=== PATIENT | female | born 1995 | race Caucasian/White ===

== ENCOUNTER 2021-04-20 13:16 | Outpatient (REF) | payer OTHER, SELFPAY ==
[2021-04-20 15:35] LABS: MANUAL DIFF FLAG NO
[2021-04-20 15:38] LABS: Basophils Absolute Auto 0.1 X10*3/uL (0.0-0.2); Eosinophils Absolute Auto 0.4 X10*3/uL (0.0-0.4); Eosinophils Percent Auto 5.7 % (0-4); Hematocrit 37.3 % (37-47); Hemoglobin 12.6 g/dl (12.0-16.0); Imm Gran Abs Auto 0.02 X10*3/uL (0.00-0.03); Imm Gran Pct Auto 0.3 % (0.0-0.4); Lymphocytes Absolute Auto 1.9 X10*3/uL (1.2-4.9); Lymphocytes Percent Auto 28.2 % (20-40); Mean Corpuscular HGB Conc 33.8 g/dl (31.0-35.0); Mean Corpuscular Hemoglobin 32.4 pg (27.0-33.0); Mean Corpuscular Volume 95.9 fL (80-98); Mean Platelet Volume 9.9 fL (9.4-12.3); Monocytes Absolute Auto 0.5 X10*3/uL (0.1-1.2); Monocytes Percent Auto 7.7 % (2-11); Neutrophils Absolute Auto 3.8 X10*3/uL (2.0-8.3); Neutrophils Percent Auto 57.1 % (45-73); Platelet Count 341 X10*3/uL (160-400); Red Blood Count 3.89 X10*6/uL (4.20-5.50); Red Cell Distribution Width 12.7 % (11.0-16.0); White Blood Count 6.7 X10*3/uL (4.8-10.8)
[2021-04-20 15:50] LABS: Alanine Aminotransferase 20 U/L (0-31); Anion Gap 14 (12-20); Aspartate Amino Transferase 19 U/L (5-31); Blood Urea Nitrogen 19 mg/dL (9-16); Calcium 10.1 mg/dL (8.4-10.2); Carbon Dioxide 23 mmol/L (22-29); Chloride 107 mmol/L (96-108); Cholesterol 413 mg/dL; Estimated Glomerular Filt Rate > 60; Glucose Fasting 72 mg/dL (60-99); HDL Cholesterol 86 mg/dL; LDL Cholesterol Calculated 319 mg/dl; Potassium 4.2 mmol/L (3.3-5.1); Sodium 140 mmol/L (135-145); Triglycerides 44 mg/dL
== END 2021-04-20 13:17 | disposition home or self-care (01) ==
LOC: HO.HMGCLDS 13:16
PROVIDERS: PCP Internal Medicine; Visit Provider Internal Medicine
DX: Z00.00 Encounter for general adult medical examination without abnormal findings (principal); I10 Essential (primary) hypertension; E78.5 Hyperlipidemia, unspecified
CPT/HCPCS: 36415; 80048; 80061; 84450; 84460; 85025

== ENCOUNTER → 2021-06-07 08:34 | Outpatient (BNVA) | payer OTHER, SELFPAY | PROVIDERS: PCP Internal Medicine; Referring Provider Internal Medicine; Visit Provider Internal Medicine | DX: E78.01 Familial hypercholesterolemia (principal) | CPT/HCPCS: 93005 ==

== ENCOUNTER 2021-07-31 08:27 | Outpatient (REF) | payer OTHER, SELFPAY ==
[2021-07-31 12:06] LABS: Alanine Aminotransferase 13 U/L (0-31); Aspartate Amino Transferase 17 U/L (5-31); Cholesterol 245 mg/dL; HDL Cholesterol 66 mg/dL; LDL Cholesterol Calculated 160 mg/dl; Triglycerides 95 mg/dL
== END 2021-07-31 08:28 | disposition home or self-care (01) ==
LOC: HO.HMGCLDS 08:27
PROVIDERS: PCP Internal Medicine; Visit Provider Internal Medicine
DX: E78.5 Hyperlipidemia, unspecified (principal)
CPT/HCPCS: 36415; 80061; 84450; 84460

== ENCOUNTER 2021-10-19 10:22 | Outpatient (REF) | payer OTHER, SELFPAY ==
[2021-10-19 12:13] LABS: Alanine Aminotransferase 62 U/L (0-31); Aspartate Amino Transferase 33 U/L (5-31); Cholesterol 205 mg/dL; HDL Cholesterol 60 mg/dL; LDL Cholesterol Calculated 135 mg/dl; Triglycerides 52 mg/dL
== END 2021-10-19 10:23 | disposition home or self-care (01) ==
LOC: HO.HMGCLDS 10:22
PROVIDERS: PCP Internal Medicine; Visit Provider Internal Medicine
DX: Z02.1 Encounter for pre-employment examination (principal); E78.01 Familial hypercholesterolemia
CPT/HCPCS: 36415; 80061; 84450; 84460

== ENCOUNTER 2022-06-11 10:22 | Outpatient (REF) | payer BC, SELFPAY ==
[2022-06-11 12:17] LABS: Alanine Aminotransferase 16 U/L (0-31); Aspartate Amino Transferase 15 U/L (5-31); Cholesterol 193 mg/dL; HDL Cholesterol 63 mg/dL; LDL Cholesterol Calculated 121 mg/dl; Triglycerides 49 mg/dL
== END 2022-06-11 10:23 | disposition home or self-care (01) ==
LOC: HO.HMGCLDS 10:22
PROVIDERS: PCP Internal Medicine; Visit Provider Internal Medicine
DX: E78.01 Familial hypercholesterolemia (principal)
CPT/HCPCS: 36415; 80061; 84450; 84460

== ENCOUNTER 2022-10-23 13:24 | Outpatient (REF) | payer BC, SELFPAY ==
[2022-10-23 17:27] LABS: Alanine Aminotransferase 13 U/L (0-31); Aspartate Amino Transferase 16 U/L (5-31); Cholesterol 255 mg/dL; HDL Cholesterol 70 mg/dL; LDL Cholesterol Calculated 174 mg/dl; Triglycerides 57 mg/dL
== END 2022-10-23 13:25 | disposition home or self-care (01) ==
LOC: HO.HMGCLDS 13:24
PROVIDERS: PCP Internal Medicine; Visit Provider Internal Medicine
DX: E78.01 Familial hypercholesterolemia (principal)
CPT/HCPCS: 36415; 80061; 82306; 84450; 84460

== ENCOUNTER 2023-03-24 20:07 | Emergency (ER) | payer BC, SELFPAY ==
[2023-03-24 20:40] VITALS: BP 124/71; PULSE 51; RESP 16; TEMP 37.1; O2SAT 100; BMI 27.3
--- NOTE | 2023-03-24 20:42 | ED.GENADULT ---
HPI - General Adult General Chief complaint: Wound/Laceration Stated complaint: sliced left finger Time Seen by Provider: 03/24/23 23:25 Related Data Previous Rx's Medication Instructions Recorded rosuvastatin 10 mg tablet 10 mg PO DAILY #90 tabs 10/23/22 Allergies Allergy/AdvReac Type Severity Reaction Status Date / Time No Known Allergies Allergy Verified 05/01/23 09:44 PMFSH Past Medical History Medical History Dyslipidemia Surgical History History of surgical removal of ganglion cyst Hx of wisdom tooth extraction Family History Family History Father Hyperlipidemia Hypertension Maternal Grandfather No problems noted. Paternal Grandmother No problems noted. Paternal Grandfather No problems noted. Mother Retinoblastoma Brother Retinoblastoma Maternal Grandmother Diabetes mellitus Social History Social History Housing: House Housing Other:: lives with parents Alcohol intake: current Patient Tobacco Use Status: Never used Tobacco e-Cigarette/Vaping Use: Never Used service: Yes Current occupational status: employed (security police) Current occupational exposures/hazards: Yes Cognitive needs: No Hearing needs: No Vision needs: Yes Physical Exam ED Vital Signs: BMI result Body Mass Index 27.3 Course Course Course Narrative: 27 year female presents for evaluation of laceration to her left 2nd finger. She accidentally cut her finger while trying to open a bag of salad with a knife. Not visualized in triage. She is not bleeding through her bandage Medications Administered Discontinued Medications Generic Name Dose Route Start Last Admin Trade Name Freq PRN Reason Stop Dose Admin Lidocaine HCl 5 ml 03/25/23 00:28 03/25/23 00:30 Lidocaine Hcl 1 % Mpf 5 Ml Vial SUBCUT 03/25/23 00:29 5 ml ONCE ONE Administration Discharge Plan Discharge Clinical Impression: Laceration Patient Disposition: Home, Self-Care Instructions: Finger Laceration (ED) Additional Instructions: The 3 stitches will need to be removed in 8-10 days. You may return back to the emergency department for removal or follow-up with your primary care provider. If you develops fevers, chills, drainage from the finger, redness, swelling, increased pain, or inability to move the finger this should be re-evaluated immediately Prescriptions: No Action rosuvastatin 10 mg tablet 10 mg PO DAILY Qty: 90 2RF Referrals: Sandra Hay MD [Primary Care Provider] - Stand Alone Forms: Work/School Release Interventions: ED Discharge Assessment Last Done: 03/25/23 01:48 Discharge Date/Time: 03/25/23 01:48
[2023-03-25 00:16] VITALS: BP 118/67; RESP 16; O2SAT 98
[2023-03-25] MEDS: Lidocaine HCl 1 % MPF 5 ML VIAL SUBCUT (00:30)
--- NOTE | 2023-03-25 00:30 | ED_ITS ---
HPI - Wound/Laceration General Chief Complaint: Wound/Laceration Stated Complaint: sliced left finger Time Seen by Provider: 03/24/23 23:25 Source: patient Mode of arrival: ambulatory Limitations: no limitations History of Present Illness HPI narrative: The patient is a 27-year-old female who presents to emergency department for evaluation of a laceration to the left 2nd digit, states it. She was cutting open a bag of lettuce with a kitchen knife when she accidentally sliced her finger. Pressure dressing was applied and she presented to the emergency department. She denies any numbness or tingling to the digit. Denies any coagulation disorders or use of anticoagulants. Reports tetanus vaccination is up-to-date. Related Data Previous Rx's Medication Instructions Recorded rosuvastatin 10 mg tablet 10 mg PO DAILY #90 tabs 10/23/22 azithromycin 250 mg tablet See Rx Instructions PO .COMPLEX #6 11/26/22 tabs Allergies Allergy/AdvReac Type Severity Reaction Status Date / Time No Known Allergies Allergy Verified 11/26/22 11:10 Review of Systems Review of Systems: Yes all other systems are reviewed and are negative [facility] Past Medical History Attestation statement: The following information was validated with the patient. Medical History Dyslipidemia Surgical History History of surgical removal of ganglion cyst Hx of wisdom tooth extraction Family History Family History Father Hyperlipidemia Hypertension Maternal Grandfather No problems noted. Paternal Grandmother No problems noted. Paternal Grandfather No problems noted. Mother Retinoblastoma Brother Retinoblastoma Maternal Grandmother Diabetes mellitus Social History Social History Housing: House Housing Other:: lives with parents Alcohol intake: current Patient Tobacco Use Status: Never used Tobacco e-Cigarette/Vaping Use: Never Used Advance Directives: No Advance Directives Information Provided: Yes service: Yes Current occupational status: employed (patrol police lieutenant) Current occupational exposures/hazards: Yes Cognitive needs: No Hearing needs: No Vision needs: Yes Physical Exam Vital Signs: Vital Signs: Last Vital Signs Temp 98.7 F 06/19/23 20:40 Pulse 51 03/24/23 20:40 Resp 16 03/25/23 00:16 BP 118/67 03/25/23 00:16 Pulse Ox 98 03/25/23 00:16 O2 Del Method Room Air 03/25/23 00:16 BMI result Body Mass Index 27.3 Vital signs have been reviewed as normal and appeared to be correct. Blood pressure normal.? Heart rate normal.? Respiration rate normal. Temperature normal.? Oxygen saturation normal. Const: Other: Appearance: Alert.?Oriented to person, place and time. No acute distress.?Normal affect. CVS: Heart sounds normal. Normal heart rate and rhythm.? Pulses normal.?? Respiratory: No respiratory distress.? Lung sounds clear to auscultation bilaterally?? Skin: Skin warm and dry.? Normal skin color.? Normal skin turgor.??1 cm linear laceration to the distal tip of the left 2nd digit, active bleeding. No swelling, or surrounding erythema to the digit. Full AROM. Able to fully flex and extend the digit. Medications Administered Discontinued Medications Generic Name Dose Route Start Last Admin Trade Name Freq PRN Reason Stop Dose Admin Lidocaine HCl 5 ml 03/25/23 00:28 03/25/23 00:30 Lidocaine Hcl 1 % Mpf 5 Ml Vial SUBCUT 03/25/23 00:29 5 ml ONCE ONE Administration Medical Decision Making Medical Decision Making MDM Narrative: Patient is a 27-year-old female presenting to emergency department for evaluation of laceration to the left 2nd digit. Accidental in nature. Active bleeding upon examination, requiring suture for repair, digital block with use of lidocaine, tetanus is up-to-date. See procedure note. Full AROM intact to the digit, not consistent with tendon injury at this time. Tolerated procedure well. Stable for discharge. Reviewed signs and symptoms that would warrant re- evaluation in the emergency department. All questions answered. Suture removal in 8-10 days Differential Diagnosis Differential Diagnoses: The differential diagnosis associated with the presentation includes (Laceration, tendon injury) Procedures Laceration Laceration 1: Site: hand Side (If applicable): left Size (cm): 1 Description: flap Depth: simple, single layer Local Anesthetic: lidocaine 1% Amount of anesthesia used (mL): 2 Pre-repair: wound explored, irrigated extensively and deep structures intact Skin layer closed with: nylon Size (cm): 5-0 Number of sutures: 3 Technique: simple, interrupted Discharge Plan Discharge Clinical Impression: Laceration Patient Disposition: Home, Self-Care Instructions: Finger Laceration (ED) Additional Instructions: The 3 stitches will need to be removed in 8-10 days. You may return back to the emergency department for removal or follow-up with your primary care provider. If you develops fevers, chills, drainage from the finger, redness, swelling, increased pain, or inability to move the finger this should be re-evaluated immediately Prescriptions: No Action rosuvastatin 10 mg tablet 10 mg PO DAILY Qty: 90 2RF azithromycin 250 mg tablet See Rx Instructions PO .COMPLEX Qty: 6 0RF Rx Instructions: take 500 mg today (day 1), then 250 mg for 4 days (days 2-5) PO Referrals: Sandra Hay MD [Primary Care Provider] - Stand Alone Forms: Work/School Release Interventions: ED Discharge Assessment Last Done: 03/25/23 01:48 Discharge Date/Time: 03/25/23 01:48
--- NOTE | 2023-03-25 01:45 | PC.NURSE ---
This RN reviewed discharge instruction with pt, pt verbalized understanding. No sign of distress at time of discharge.
== END 2023-03-25 01:48 | disposition home or self-care (01) ==
PROVIDERS: Emergency Provider Emergency Medicine; PCP Internal Medicine
DX: S61.412A Laceration without foreign body of left hand, initial encounter (principal); W26.0XXA Contact with knife, initial encounter; Y93.9 Activity, unspecified; Y92.9 Unspecified place or not applicable; Y99.9 Unspecified external cause status
CPT/HCPCS: 12041; 99283; 99284

== ENCOUNTER 2023-04-02 13:36 | Emergency (ER) | payer BC, SELFPAY ==
--- NOTE | 2023-04-02 13:38 | ED_ITS ---
HPI - Skin/Abscess/Foreign Bdy General Chief complaint: Wound/Laceration Stated complaint: remove stitches Time Seen by Provider: 04/02/23 13:50 Source: patient, RN notes reviewed and old records reviewed Mode of arrival: ambulatory History of Present Illness HPI narrative: 27-year-old female with a past medical history of HLD, presenting to ED for suture removal. Patient was seen and treated in our ED on 03/25/23, had 3 sutures placed to left 2nd digit s/p cutting with knife. Denies complaints at present including increasing pain, drainage from area, numbness/tingling MD complaint: laceration Onset (ago): day(s) Related Data Previous Rx's Medication Instructions Recorded rosuvastatin 10 mg tablet 10 mg PO DAILY #90 tabs 10/23/22 azithromycin 250 mg tablet See Rx Instructions PO .COMPLEX #6 11/26/22 tabs Allergies Allergy/AdvReac Type Severity Reaction Status Date / Time No Known Allergies Allergy Verified 04/02/23 13:47 Review of Systems Review of Systems: Constitutional: No Fever, No Chills ENT/Mouth: No Ear Pain, No sore throat, No Rhinorrhea, No Swallowing Difficulty Cardiovascular: No Chest Pain, No SOB Respiratory: No Cough, No Sputum Gastrointestinal: No Nausea, No Vomiting, No Abdominal pain Musculoskeletal: No joint pain, No Myalgias, No Joint Swelling Skin: + Skin Lesions, No rash Neuro: No Weakness, No Numbness, No Paresthesias Yes all other systems are reviewed and are negative Constitutional: Constitutional: Reports as per [facility] Past Medical History Attestation statement: The following information was validated with the patient. Source: old records reviewed Medical History Dyslipidemia Surgical History History of surgical removal of ganglion cyst Hx of wisdom tooth extraction Family History Family History Father Hyperlipidemia Hypertension Maternal Grandfather No problems noted. Paternal Grandmother No problems noted. Paternal Grandfather No problems noted. Mother Retinoblastoma Brother Retinoblastoma Maternal Grandmother Diabetes mellitus Social History Social History Housing: House Housing Other:: lives with parents Alcohol intake: current Patient Tobacco Use Status: Never used Tobacco e-Cigarette/Vaping Use: Never Used service: Yes Current occupational status: employed (morals squad police officer) Current occupational exposures/hazards: Yes Cognitive needs: No Hearing needs: No Vision needs: Yes Physical Exam Vital Signs: Vital Signs: BMI result Body Mass Index 27.3 Const: General: cooperative, healthy appearing and no acute distress Orientation/consciousness: patient oriented x3 Limitations: no limitations HEENT: Head: Yes normal to inspection and Yes atraumatic Ears: hearing grossly normal bilaterally General nose exam: Normal external nose present Face and sinus: Yes normal facial exam Eyes: General: appearance normal, both eyes and all related structures EOM: EOMs intact bilaterally Neck: Neck: Yes normal visual inspection and Yes no meningeal signs Resp: Effort & Inspection: normal respiratory effort and no respiratory distress Cardio: Rate: regular rate Peripheral pulses: Peripheral pulses 2+ throughout Skin: Other: Appropriately healing wound to left 2nd digit with 3 sutures intact. No surrounding erythema, no fluctuance/induration Rashes: no rashes Neuro: General: patient oriented x3, tone normal and no meningeal signs Gait exam (Neuro): Normal gait present Extrem: General: Yes normal to inspection Medical Decision Making Medical Decision Making MDM Narrative: 27-year-old female with a past medical history of HLD, presenting to ED for suture removal. Patient was seen and treated in our ED on 03/25/23, had 3 sutures placed to left 2nd digit s/p cutting with knife. On exam vital signs stable, NAD, nontoxic appearing, physical exam as above. Three sutures removed without complication Results discussed with patient including worrisome signs and symptoms and strict return precautions, and when to return to the emergency department. They verbalized understanding and feel safe for discharge at this time. Differential Diagnosis Differential Diagnoses: The differential diagnosis associated with the presentation includes As above External Record Review External record reviewed: Inpatient record, Office record, Outpatient record, Prior outpatient labs, Prior outpatient radiology, Primary care record and Outside ED record Tests considered The following testing was considered but not selected: As above Procedures Procedure Narrative Procedure Narrative: Suture removal 3 sutures removed No complication Discharge Plan Discharge Clinical Impression: Visit for suture removal Patient Disposition: Home, Self-Care Instructions: Stitches Removal (ED) Additional Instructions: Keep area clean. You may apply bacitracin or Neosporin at home You can also apply anti scar cream like Mederma if area begins to look infected, is red, there is drainage or you fever return to the ED Prescriptions: No Action rosuvastatin 10 mg tablet 10 mg PO DAILY Qty: 90 2RF azithromycin 250 mg tablet See Rx Instructions PO .COMPLEX Qty: 6 0RF Rx Instructions: take 500 mg today (day 1), then 250 mg for 4 days (days 2-5) PO Referrals: Physician,Unknown J [Physician] -
[2023-04-02 13:48] VITALS: BMI 27.3
--- NOTE | 2023-04-02 13:49 | PC.NURSE ---
Sutures removed by triage provider without incident.
== END 2023-04-02 14:02 | disposition home or self-care (01) ==
PROVIDERS: Emergency Provider Emergency Medicine; PCP Internal Medicine
DX: Z48.02 Encounter for removal of sutures (principal)
CPT/HCPCS: 99282

== ENCOUNTER 2023-05-01 09:07 | Outpatient (AMB) | payer BC, SELFPAY ==
--- NOTE | 2023-05-01 09:10 | MHC.PC.OV ---
Vital Signs 05/01/23 09:12 Height 5 ft Weight 136 lb 4 oz BMI 26.6 BP 114/70 Blood Pressure Location Lt brachial Position Sitting Pulse 51 Pulse Source Pulse Oximeter Pulse Oximetry (%) 98 Oxygen Delivery Method Room Air Intake Visit Reasons: Work injury/04-27/Concussion Intake Note: Pt is here for a work injury follow up. Pt states she was hit in the back of her head with a solfball on 04/27/23. Allergies No Known Allergies Allergy (Verified 05/01/23 09:44) Medication List - Last Reconciled 05/01/23 by Sandra Hay MD rosuvastatin 10 mg PO DAILY Tobacco use date assessed: 05/01/23 Dental Screening Dental Screen Date: 05/01/23 Did you have a dental visit in the last 12 months?: Yes Did you have a dental problem in the last 6 months where you did not have access to dental care?: No Was dental information given to patient?: No HPI Work injury/04-27/Concussion HPI Details 27-year-old lady here today to be checked. Was hit by softball on the back her head 04/27/2023 , no loss of consciousness, no change in vision. Patient was seen at an urgent care and advised rest and drink plenty of fluids. 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 She does complain of some blurry vision when she watches television, but no dizziness, no headache, no nausea vomiting, or unsteadiness in gait reported. PENDING SALE TO [facility] Medical History Dyslipidemia Surgical History History of surgical removal of ganglion cyst Hx of wisdom tooth extraction Family History Father Hyperlipidemia Hypertension Maternal Grandfather No problems noted. Paternal Grandmother No problems noted. Paternal Grandfather No problems noted. Mother Retinoblastoma Brother Retinoblastoma Maternal Grandmother Diabetes mellitus Social History Housing: House Housing Other:: lives with parents Alcohol intake: current Patient Tobacco Use Status: Never used Tobacco e-Cigarette/Vaping Use: Never Used service: Yes Current occupational status: employed (security flex utility officer) Current occupational exposures/hazards: Yes Cognitive needs: No Hearing needs: No Vision needs: Yes Female Reproductive History Menstrual Age of Menarche: 13 Questionnaire Thrive Questionnaire Date Thrive assessed: 10/23/22 AUDIT C Alcohol Use Questionnaire (AUDIT-C) 1. How often do you have a drink containing alcohol?: Monthly or less 2. How many drinks containing alcohol do you have on a typical day when you are drinking?: 1 or 2 3. How often do you have six or more drinks on one occasion?: Never Total Score: 1 DOMINICK-7 AMB Questionnaire DOMINICK-7 Date DOMINICK - 7 assessed: 10/23/22 Source: Developed by Drs. Pratik Ruvalcaba, Flavia Abel, Anthony Babb and colleagues, with an educational maria from [employer] Review of Systems Const All systems reviewed & are unremarkable except as noted in HPI and below Physical exam (Primary Care) Vital Signs: Last Vital Signs Pulse 51 05/01/23 09:12 BP 114/70 05/01/23 09:12 Pulse Ox 98 05/01/23 09:12 Oxygen Delivery Method Room Air 05/01/23 09:12 BMI result Body Mass Index 26.6 Tobacco/Smoking Status: Tobacco use Status Tobacco use date assessed 05/01/23 05/01/23 09:17 Patient Tobacco Use Status Never used Tobacco 05/01/23 09:17 e-Cigarette/Vaping Use Never Used 05/01/23 09:17 Thrive Assessment: Date of Thrive Assessment Date Thrive assessed 10/23/22 05/01/23 09:17 Const Other: Alert oriented x3, ambulatory with normal gait, accompanied by friend Orientation/consciousness: patient oriented x3 [facility] Head: Yes No palpable skull fracture present, Yes normocephalic, No abrasion, No Vivas's sign, No hematoma, No raccoon eyes, Yes scalp tenderness (Occipital area) and No periorbital ecchymosis Face and sinus: Yes face symmetric Eyes Other: VA by Snellen- 20/13 ou with corrective lenses, 20/13 OS & 20/15 OD General: appearance normal, both eyes and all related structures Visual Barber: normal visual barber by confrontation Alignment and Position: alignment normal and other (No nystagmus) Periorbital: periorbital findings normal Eyelids: Yes eyelids normal Conjunctivae: conjunctivae normal Sclerae: sclerae normal Pupils: Equal, round and reactive pupils present EOM: EOMs intact bilaterally Neck Neck: Yes full ROM, Yes no lymphadenopathy, Yes no meningeal signs, Yes supple and No tender Resp Auscultation: clear to auscultation bilaterally Cardio Other: S1-S2 PRESENT REGULAR RATE AND RHYTHM Back/Spine/Pelvis Cervical Spine: normal cervical lordosis, cervical ROM normal, No cervical muscular tenderness, No pain with cervical ROM and No Cervical spine tenderness Skin General skin exam: no rashes or lesions noted Neuro Other: Able to do tandem walk, negative Romberg sign General: patient oriented x3, gait normal, tone normal, moves all extremities, Normal light touch and pain sensation, no meningeal signs, no focal motor deficits, CN's II-XI intact bilaterally and normal sensation to monofilament Cranial nerves: Yes Equal, round and reactive pupils present Extrem General: Yes full ROM, Yes no joint enlargement, Yes no clubbing, cyanosis or edema, Yes no calf tenderness and Yes normal gait Assessment and Plan Assessment & Plan (1) Concussion: Code(s): S06.0XAA - Concussion with loss of consciousness status unknown, initial encounter Plan: Advised plenty of rest, drink plenty of fluids, try to avoid reading, watching television, using computers or her phone for prolonged periods of time. May go to work tonight without any restriction. Return to the clinic if no improvement of symptoms or worsens Coding Level of Care Code Est Pt Level 3 (81925) Diagnoses Concussion S06.0XAA
[2023-05-01 09:12] VITALS: BP 114/70; PULSE 51; O2SAT 98; BMI 26.6
== END 2023-05-01 11:14 | disposition home or self-care (01) ==
PROVIDERS: PCP Internal Medicine; Visit Provider Internal Medicine
DX: S06.0XAA Concussion with loss of consciousness status unknown, initial encounter (principal); Z04.2 Encounter for examination and observation following work accident
CPT/HCPCS: 99213